=== PATIENT | female | born 1990 | race African-American/Black ===

== ENCOUNTER 2017-03-18 11:59 | Emergency (ER) | payer OTHER ==
[~2017-03-18] VITALS: Ht 172.7 cm; Wt 108.9 kg
--- NOTE | 2017-03-18 12:20 | NUR ---
ERMD AT THE BEDSIDE FOR EVAL AND EXAM.
--- NOTE | 2017-03-18 13:31 | NUR ---
IV removed. Catheter intact and site benign. Pressure and 4x4 gauze applied to site. No bleeding noted.
[2017-03-18 13:32] VITALS: BP 113/78
--- NOTE | 2017-03-18 13:36 | NUR ---
Patient discharged to home in stable conditon. Written and verbal after care instructions given. Patient verbalizes understanding of instructions.
== END 2017-03-18 13:36 | disposition home or self-care (01) ==
LOC: ER 11:59
DX: A08.4 Viral intestinal infection, unspecified (principal)
CPT/HCPCS: A4663; J2405; J7030

== ENCOUNTER 2018-02-12 13:12 | Emergency (ER) | payer OTHER ==
[~2018-02-12] VITALS: Ht 170.2 cm; Wt 122.5 kg
--- NOTE | 2018-02-12 13:25 | NUR ---
ADMIT A FEMALE PT IN RM 2B, AMBULATORY FROM HOME WITH A C/O ITCHING RASHES ON BOTH HER GROINS. VERY PLEASANT. AWAKE, ALERT AND ORIENTEDX3.
--- NOTE | 2018-02-12 13:30 | NUR ---
SEEN AND EXAMINED BY DR HOUSE. NEW PRESCRIPTION MADE AND PT IS BEING DISCHARGED.
--- NOTE | 2018-02-12 13:35 | NUR ---
DISCHARGE INSTRUCTIONS GIVEN TO THE PT WITH GOOD UNDERSATANDING. DISCHARGED AMBULATORY. CONDITION IS STABLE.
[2018-02-12 14:07] VITALS: BP 118/80
== END 2018-02-12 13:35 | disposition home or self-care (01) ==
LOC: ER 13:15
DX: B35.9 Dermatophytosis, unspecified (principal); G89.29 Other chronic pain; M54.9 Dorsalgia, unspecified
CPT/HCPCS: A4663

== ENCOUNTER 2019-01-24 18:23 | Emergency (ER) | payer MEDICAID, OTHER ==
[~2019-01-24] VITALS: Ht 172.7 cm; Wt 124.7 kg
[2019-01-24] MEDS ORDERED: ACETAMINOPHEN-COD #3 TABLET (18:47)
[2019-01-24] MEDS ORDERED: predniSONE 20 MG TABLET PO ONE (19:00)
[2019-01-24] MEDS ORDERED: ACETAMINOPHEN ES 500 MG TABLET PO ONE (19:00)
[2019-01-24] MEDS ORDERED: PSEUDOEPHEDRINE HCL 30 MG TABLET PO ONE (19:00)
--- NOTE | 2019-01-24 19:02 | NUR ---
Full SBAR report given to manufacturing shift supervisor FLASH Chavez.
[2019-01-24] MEDS ORDERED: predniSONE 20 MG TABLET ONE (19:09)
[2019-01-24] MEDS ORDERED: PSEUDOEPHEDRINE HCL 30 MG TABLET ONE (19:09)
--- NOTE | 2019-01-24 19:09 | NUR ---
Pt out of ER for Xray.
[2019-01-24] MEDS ORDERED: ACETAMINOPHEN ES 500 MG TABLET ONE (19:10)
--- NOTE | 2019-01-24 19:25 | NUR ---
Pt back to ER from Xray.
--- NOTE | 2019-01-24 19:36 | NUR ---
Patient discharged to home in stable conditon. Written and verbal after care instructions given. Patient verbalizes understanding of instructions. Pt ambulated out of ER with steady gait, no acute signs of distress, VSS, all belongings taken.
[2019-01-24 19:38] VITALS: BP 115/69
== END 2019-01-24 19:39 | disposition home or self-care (01) ==
LOC: ER 18:27
DX: J40 Bronchitis, not specified as acute or chronic (principal); H65.93 Unspecified nonsuppurative otitis media, bilateral; F32.9 Major depressive disorder, single episode, unspecified; F41.9 Anxiety disorder, unspecified; Z79.899 Other long term (current) drug therapy
CPT/HCPCS: 71046; 99284; J7512; A4663; A9150

== ENCOUNTER 2019-02-12 20:22 | Emergency (ER) | payer MEDICAID ==
[~2019-02-12] VITALS: Ht 172.7 cm; Wt 113.4 kg
[~2019-02-12 20:22] MED LIST: ACETAMINOPHEN-COD #3 TABLET
--- NOTE | 2019-02-12 20:41 | NUR ---
RECEIVED PT C/O SORETHROAT X2 DAYS +PAIN UPON SWALLOWING ABLE TO SPEAK CLEAR AND COMPLETE SENTENCES DENIES FEVER/CHILLS N/V/D MD AT BEDSIDE FOR HX AND PHYSICAL
[2019-02-12] MEDS ORDERED: predniSONE 20 MG TABLET PO ONE (21:00)
[2019-02-12] MEDS ORDERED: IBUPROFEN 600 MG TABLET PO ONE (21:00)
[2019-02-12] MEDS ORDERED: IBUPROFEN 600 MG TABLET ONE (21:04)
[2019-02-12] MEDS ORDERED: predniSONE 20 MG TABLET ONE (21:04)
--- NOTE | 2019-02-12 21:07 | NUR ---
Patient discharged to home in stable conditon. Written and verbal after care instructions given. Patient verbalizes understanding of instructions. AMBULATORY WITH STABLE GAIT ALL BELONGINGS WITH PT
[2019-02-12 21:12] VITALS: BP 118/96
== END 2019-02-12 21:05 | disposition home or self-care (01) ==
LOC: ER 20:22
DX: J06.9 Acute upper respiratory infection, unspecified (principal); B97.89 Other viral agents as the cause of diseases classified elsewhere; F32.9 Major depressive disorder, single episode, unspecified; F41.9 Anxiety disorder, unspecified; Z79.899 Other long term (current) drug therapy
CPT/HCPCS: 99283; J7512; A4663

== ENCOUNTER 2021-10-12 09:02 | Emergency (ER) | payer MEDICAID, OTHER ==
[~2021-10-12] VITALS: Ht 175.3 cm; Wt 136.1 kg
--- NOTE | 2021-10-12 09:16 | NUR ---
[email or web address], medical screening exam in progress
[2021-10-12] MEDS ORDERED: IBUP-1957 PO ×2 (09:21→09:30)
[2021-10-12] MEDS ORDERED: DOXY100T2 PO ×2 (09:21→09:30)
[2021-10-12] MEDS ORDERED: ONDA4TAB11 PO ×2 (09:21→09:30)
[2021-10-12] MEDS ORDERED: ONDANSETRON ODT 4 MG TAB.RAPDIS ONE (09:21)
[2021-10-12] MEDS ORDERED: MUPI22OI2 TP ×2 (09:21→09:30)
--- NOTE | 2021-10-12 09:26 | NUR ---
Patient discharged to home in stable condition with brisk steady gait. Written and verbal after care instructions given. Patient verbalized understanding and compliance of instructions. Stressed follow up with primary doctor or return to ER for worsening s/s.
[2021-10-12] MEDS ORDERED: ONDANSETRON ODT 4 MG TAB.RAPDIS SL ONE (09:30)
== END 2021-10-12 09:26 | disposition home or self-care (01) ==
LOC: ER 09:02
DX: L73.9 Follicular disorder, unspecified (principal); R03.0 Elevated blood-pressure reading, without diagnosis of hypertension; E66.9 Obesity, unspecified; Z68.41 Body mass index [BMI] 40.0-44.9, adult
CPT/HCPCS: A4663; Q0162

== ENCOUNTER 2022-09-25 12:33 | Emergency (ER) | payer MEDICAID, OTHER ==
[~2022-09-25 12:33] MED LIST changes: +DOXY100T2 PO; +IBUP-1957 PO; +MUPI22OI2 TP; +ONDA4TAB11 PO
--- NOTE | 2022-09-25 12:41 | NUR ---
Pt left w/o being traiged.
== END 2022-09-25 12:46 | disposition left against medical advice (07) ==
LOC: ER 12:33
DX: Z53.21 Procedure and treatment not carried out due to patient leaving prior to being seen by health care provider (principal)